=== PATIENT | male | born 1975 | race Caucasian/White ===

== ENCOUNTER 2017-05-27 05:48 | Inpatient (IN) | payer OTHER ==
[~2017-05-27] VITALS: Ht 182.9 cm; Wt 147.5 kg
[~2017-05-27 05:48] MED LIST: OXYC1TAB63 PO; XARE10TA PO
[2017-05-27] MEDS ORDERED: ceFAZolin 3,000 MG/NS 100 ML (if >120 kg) IV SCH ×2 (06:15)
[2017-05-27] MEDS ORDERED: CHLORHEXIDINE GLUCONATE 2 % 1 PACK (2 CLOTHS) TOPICAL PRN (06:30)
[2017-05-27] MEDS ORDERED: POVIDONE IODINE 5% (ANTISEPSIS KIT) 4 APPLICATIONS EACH NARE PRN (06:30)
[2017-05-27] MEDS ORDERED: LACTATED RINGER'S 1000 ML IV PRN (06:30)
[2017-05-27] MEDS ORDERED: CHLORHEXIDINE GLUCONATE 4% SOLN 120 ML BTL TOPICAL SCH (06:30)
[2017-05-27] MEDS ORDERED: METOPROLOL TARTRATE 25 MG TAB PO PRN (06:30)
[2017-05-27] MEDS ORDERED: SODIUM CHLORID 0.9% 500 ML IV PRN (06:30)
[2017-05-27] MEDS ORDERED: VANCOMYCIN 1000 MG/NS 250 ML (for <70 kg) IV SCH ×2 (06:30)
[2017-05-27] MEDS ORDERED: ACETAMINOPHEN 1000 MG/100 ML 100 ML IV ONE (09:47)
[2017-05-27] MEDS ORDERED: GENTAMICIN SULFATE 80 MG/2 ML VIAL ONE (10:06)
[2017-05-27] MEDS ORDERED: VANCOMYCIN HCL 1000 MG VIAL ONE (10:06)
[2017-05-27] MEDS ORDERED: ceFAZolin INJ 1,000 MG VIAL ONE (10:06)
[2017-05-27] MEDS ORDERED: PROPOFOL 200 MG/20 ML AMP IV ONE (12:00)
[2017-05-27] MEDS ORDERED: LIDOCAINE HCL 1% PF 5 ML SYRINGE OTHER ONE (12:00)
[2017-05-27] MEDS ORDERED: SUCCINYLCHOLINE CHLORIDE 200 MG/10 ML VIAL IV ONE (12:00)
[2017-05-27] MEDS ORDERED: DEXAMETHASONE SOD PHOS 4 MG/ML VIAL IV ONE (12:00)
[2017-05-27] MEDS ORDERED: ONDANSETRON HCL 4 MG/2 ML VIAL IV ONE (12:00)
--- NOTE | 2017-05-27 12:49 | PD.OP ---
cc: Clay Escalante MD Operative Report Date of Surgery: May 27, 2017 Preoperative Diagnosis: Comminuted displaced right bicondylar tibial plateau fracture Postoperative Diagnosis: Procedure: Removal of external fixation, open reduction internal fixation right bicondylar tibial plateau fracture Anesthesia: Gen. Surgeon: Clay Escalante Facility Administrator(s): JAMES Gonzalez PA-C The surgical procedure was assisted by my physician bankruptcy legal assistant. My P.A. presence was necessary throughout this case for the manipulation and positioning of the surgical extremity. My P.A. was assisting me throughout the duration of this procedure. The skill set of a physician bankruptcy legal assistant was medically necessary to complete this procedure. During the surgical case the medical surgical tech was working at the back table and the physician bankruptcy legal assistant was directly assisting me. Operation and Findings: This patient was seen and evaluated preoperatively. Patient sustained an injury resulting a comminuted right bicondylar tibial plateau fracture. Informed consent was obtained preoperatively after detailed discussion of the risks and benefits of surgery. Risk of surgery including bleeding, infection, nonunion, painful hardware, stiffness, loss of motion, arthritis, need for knee replacement, as well as medical complications including blood clots, stroke, heart attack, and were discussed. I also discussed the possibility of using allograft bone graft . Preoperatively the operative site was marked. Patient was brought to the operating room and placed on the operating room table. Intravenous sedation and general endotracheal anesthesia were administered. IV antibiotics were given and a time out procedure was preformed. Procedure began with removal of the external fixator. Clamps were loosened. Bars and clamps were now removed. The pins were left in place. Next,the operative leg was prepped with alcohol followed by Hibiclens and draped in the usual sterile fashion. Attention was now turned towards the medial tibial plateau. A 6 inch incision was made over the posterior medial aspect of the tibial plateau. Saphenous vein was protected. The PES insertion was elevated to expose the posterior medial tibial plateau. Fracture was visualized. Attention was now turned toward reduction. Traction was applied. Fracture was manipulated. Fracture keyed in excellent alignment. A fracture tenaculum was used to compress fracture. K wires were used for provisional fixation. Fluoroscopy confirmed excellent alignment of fracture. Two 3.5 cortical lag screws were placed from anterior to posterior. Good compression was obtained. A Synthes plate was now placed along the posterior medial tibial plateau. Plate was provisionally held to bone with K wires. Fluoroscopy confirmed plate placement. 3.5 cortical screws were used to compress plate to bone. Additional locking screws were placed proximally. Next a 6-inch curvilinear incision over the anterolateral knee. Subcutaneous tissue was treated with Bovie. Iliotibial band was split in line with fibers. A sub-meniscal arthrotomy was created and the lateral articular surface was visualized. There was significant comminution and depression of the articular surface. A window was made in the metaphyseal region and bone tamps used to elevate the articular surface. Articular surface reduced into excellent alignment. K-wires were used for provisional fixation. At this point cancellous bone graft was packed under the articular surface using a bone tamp. The cortical fragments were now reduced. Fluoroscopy revealed excellent alignment of fracture. A Synthes proximal tibial plate was selected. The plate was provisionally held with K-wires. 3.5 cortical screws were used compress plate to bone distally, and a periarticular clamp was used to compress the medial and lateral tibial plateau fracture fragments together. Multiple locking screws were now placed proximally. Additional screws were placed in the shaft. K-wires were removed. Final fluoroscopy showed excellent alignment of fracture with well-placed hardware. The incision was thoroughly irrigated. Attention was now returned back to the medial plate. Additional locking screws were placed proximally within the plate. All screws were predrilled and premeasured for appropriate length. Incisions were thoroughly irrigated. Attention was now turned to closure. Fascia and iliotibial band were closed with #1 Vicryl,. Subcutaneous tissues closed with 3-0 Vicryl and skin was closed with silas. Sterile dressings were applied. The patient was transferred to recovery in stable condition. Clay Escalante MD May 27, 2017 12:49
--- NOTE | 2017-05-27 12:56 | RADRPT ---
EXAM DATE/TIME: 05/27/2017 12:28 [facility] COMPARISON: No previous studies available for comparison. INDICATIONS : Post-op ORIF right tibial plateau fracture. MEDICAL HISTORY : None. SURGICAL HISTORY : None. ENCOUNTER: Initial ACUITY: 1 day PAIN SCORE: Non-responsive. LOCATION: Right Knee. FINDINGS: There is a comminuted tibial plateau fracture which has undergone open reduction internal fixation. F ixation consists of medial and lateral plates and multiple screws. Alignment is near-anatomic. No acu te complication demonstrated. There is a minimally displaced fracture in the neck region of the proximal fibula. CONCLUSION: Screw and plate fixation proximal tibia fracture in near-anatomic alignment. Arash Cruz MD on May 27, 2017 at 12:53 Board Certified Radiologist. This report was verified electronically.
[2017-05-27] MEDS ORDERED: DO NOT ADM ANY ANTICOAGULANT DRUGS PRN (13:30)
[2017-05-27] MEDS ORDERED: *morphine SULFATE 8 MG/ML PERIprocedure ONLY ONE ×2 (13:32→13:43)
[2017-05-27] MEDS ORDERED: *MEPERIDINE 25 MG INJ VIAL PERIprocedural Use ONLY ONE (13:51)
[2017-05-27] MEDS ORDERED: *HYDROmorphone PF 1 MG VIAL PERIprocedural Use ONLY ONE ×2 (13:54→14:10)
[2017-05-27] MEDS ORDERED: NALOXONE HCL 0.4 MG/ML AMP IV PUSH PRN (14:00)
[2017-05-27] MEDS ORDERED: Post-op Orders (for Pharmacy) XX ONE (14:00)
[2017-05-27] MEDS ORDERED: diphenhydrAMINE HCL 25 MG CAP PO PRN (14:00)
[2017-05-27] MEDS ORDERED: ERGOCALCIFEROL (VIT D2) 50,000 UNIT CAP PO SCH (14:00)
[2017-05-27] MEDS: CALCIUM/VITAMIN D 250 MG/125 U TAB PO SCH ×2 (14:00→17:17)
[2017-05-27] MEDS: KETOROLAC TROMETHAMINE 30 MG/ML (IVP) VIAL IVP SCH ×2 (14:38→21:38)
[2017-05-27] MEDS: LACTATED RINGER'S 1000 ML INJ 1,000 ML IV SCH (14:40)
[2017-05-27] MEDS: ACETAMINOPHEN/HYDROcodone 325 MG/10 MG TAB PO PRN ×2 (14:54→19:44)
[2017-05-27 17:10] VITALS: BP 127/69; PULSE 79; RESP 17; TEMP 97.5; O2SAT 95
[2017-05-27] MEDS: MORPHINE SULFATE 4 MG/ML INJ IV PUSH PRN ×2 (17:13→21:37)
[2017-05-27] MEDS: ONDANSETRON HCL 4 MG/2 ML VIAL IVP PRN ×2 (17:14→21:37)
[2017-05-27] MEDS: CEFAZOLIN INJ 2,000 MG in SODIUM CHLORIDE 0.9% INJ 100 ML IV SCH (18:24)
[2017-05-27 19:35] VITALS: BP 132/60; PULSE 86; RESP 19; TEMP 98; O2SAT 96
[2017-05-27] MEDS: DOCUSATE SODIUM 50 MG/SENNA 8.6 MG TAB PO SCH (19:43)
[2017-05-27] MEDS: VANCOMYCIN INJ 1,000 MG in SODIUM CHLOR 0.9% 250 ML INJ 250 ML IV SCH (21:44)
[2017-05-27 23:26] VITALS: BP 109/57; PULSE 84; RESP 18; TEMP 97.8; O2SAT 96
[2017-05-28] MEDS: ACETAMINOPHEN/HYDROcodone 325 MG/10 MG TAB PO PRN ×6 (00:15→21:12)
[2017-05-28] MEDS: LACTATED RINGER'S 1000 ML INJ 1,000 ML IV SCH ×2 (01:20→16:33)
[2017-05-28] MEDS: CEFAZOLIN INJ 2,000 MG in SODIUM CHLORIDE 0.9% INJ 100 ML IV SCH ×3 (02:37→18:03)
[2017-05-28] MEDS: ONDANSETRON HCL 4 MG/2 ML VIAL IVP PRN ×4 (02:38→13:05)
[2017-05-28] MEDS: MORPHINE SULFATE 4 MG/ML INJ IV PUSH PRN ×5 (02:38→19:08)
[2017-05-28 04:35] VITALS: BP 134/65; PULSE 83; RESP 17; TEMP 98; O2SAT 96
[2017-05-28 05:41] LABS: HEMATOCRIT 30.5 % (39.0-51.0)
[2017-05-28] MEDS: KETOROLAC TROMETHAMINE 30 MG/ML (IVP) VIAL IVP SCH ×3 (06:17→21:17)
[2017-05-28 07:57] VITALS: BP 123/60; PULSE 77; RESP 18; TEMP 98.3; O2SAT 97
[2017-05-28] MEDS: DOCUSATE SODIUM 50 MG/SENNA 8.6 MG TAB PO SCH ×2 (08:10→21:12)
[2017-05-28] MEDS: CHOLECALCIFEROL (VIT D3) 1000 UNIT TAB PO SCH (08:10)
[2017-05-28] MEDS: CALCIUM/VITAMIN D 250 MG/125 U TAB PO SCH ×3 (08:11→16:31)
--- NOTE | 2017-05-28 08:53 | PD.ORT.PN ---
Subjective Subjective Remarks Pain controlled with no new complaints Objective Vitals Vital Signs Date Time Temp Pulse Resp B/P (MAP) Pulse Ox O2 Delivery O2 Flow Rate FiO2 05/28/17 07:57 98.3 77 18 123/60 (81) 97 05/28/17 04:35 98.0 83 17 134/65 (88) 96 05/27/17 23:26 97.8 84 18 109/57 (74) 96 05/27/17 19:35 98.0 86 19 132/60 (84) 96 05/27/17 17:10 97.5 79 17 127/69 (88) 95 05/27/17 16:00 14 05/27/17 16:00 14 05/27/17 13:22 98.6 79 18 107/52 (70) 93 Nasal Cannula 4 I/O 05/27/17 05/27/17 05/27/17 05/28/17 05/28/17 05/28/17 07:00 15:00 23:00 07:00 15:00 23:00 Intake Total 700 ml 770 ml 120 ml 960 ml Output Total 200 ml 1000 ml Balance 500 ml 770 ml 120 ml -40 ml Intake Oral 120 ml 960 ml IV Total 650 ml 120 ml Other 700 ml Output Urine Total 1000 ml Estimated Blood Loss 200 ml # Bowel Movements 0 Result Diagram: 05/28/17 0512 Imaging Last 72 hours Impressions Knee X-Ray 05/27/17 0000 Signed Impressions: Service Date/Time: Saturday, May 27, 2017 12:28 - CONCLUSION: Screw and plate fixation proximal tibia fracture in near-anatomic alignment. Arash Cruz MD Objective Remarks Right lower extremity: No pain with hip range of motion. Knee immobilizer and clean dressings in place. Distally intact sensation with good capillary refills. After dorsiflexion plantar flexion of foot. Intact distal pulses Assessment & Plan Assessment and Plan Right bicondylar tibial plateau fracture ORIF POD 1 with removal of external fixation Nonweightbearing right lower extremity Knee immobilizer at all times except for physical therapy for passive range of motion of the knee.. No active leglifts or quad sets Begin daily dressing changes POD 2 Plan for discharge to home on Friday Lovenox Follow-up Dr. Escalante or [place] in 2 weeks Kana Nicholson Jr. May 28, 2017 08:53
--- NOTE | 2017-05-28 08:57 | HHI.FF ---
Face to Face Verification Diagnosis: (1) Closed bicondylar fracture of right tibial plateau Physical Therapy Gait training, Safety evaluation Canvas Knee Splint: Remove only with PT Right LE Weight Bearing: Non WB, No Strengthening, No Quad Sets Right LE Range of Motion: Passive ROM Nursing Dressing Changes: Daily dressing change, Gabriel wrap, 4x4s, Xeroform I have seen patient Howard Chow on 05/28/17. My clinical findings support the need for the requested home health care services because: Limited ability to care for self I certify that my clinical findings support that this patient is homebound because: Unsteady gait/balance Kana Nicholson Jr. May 28, 2017 08:57
[2017-05-28 11:54] VITALS: BP 115/59; PULSE 73; RESP 18; TEMP 97.8; O2SAT 100
[2017-05-28] MEDS: ENOXAPARIN SODIUM 30 MG/0.3 ML SYRINGE SQ SCH ×2 (12:51→23:41)
[2017-05-28] MEDS: VANCOMYCIN INJ 1,000 MG in SODIUM CHLOR 0.9% 250 ML INJ 250 ML IV SCH ×2 (12:51→23:00)
[2017-05-28 15:56] VITALS: BP 110/55; PULSE 78; RESP 18; TEMP 98.2; O2SAT 97
[2017-05-28 20:00] VITALS: BP 117/55; PULSE 91; RESP 17; TEMP 98.2; O2SAT 99
[2017-05-28 23:02] VITALS: BP 120/56; PULSE 84; RESP 17; TEMP 97.6; O2SAT 97
[2017-05-28] MEDS ORDERED: BACITRACIN TOP OINT 15 GM TUBE TOPICAL PRN (23:15)
[2017-05-29] MEDS: ACETAMINOPHEN/HYDROcodone 325 MG/10 MG TAB PO PRN ×4 (01:56→12:14)
[2017-05-29] MEDS: CEFAZOLIN INJ 2,000 MG in SODIUM CHLORIDE 0.9% INJ 100 ML IV SCH ×2 (01:57→10:42)
[2017-05-29] MEDS: LACTATED RINGER'S 1000 ML INJ 1,000 ML IV SCH (02:00)
[2017-05-29] MEDS: KETOROLAC TROMETHAMINE 30 MG/ML (IVP) VIAL IVP SCH (05:55)
--- NOTE | 2017-05-29 06:33 | PD.ORT.PN ---
Subjective Subjective Remarks POD 2 s/p ORIF right tibial plateau doing well. pain controlled. using walker. Objective Vitals Vital Signs Date Time Temp Pulse Resp B/P (MAP) Pulse Ox O2 Delivery O2 Flow Rate FiO2 05/28/17 23:02 97.6 84 17 120/56 (77) 97 05/28/17 20:00 98.2 91 17 117/55 (75) 99 05/28/17 15:56 98.2 78 18 110/55 (73) 97 05/28/17 11:54 97.8 73 18 115/59 (77) 100 05/28/17 07:57 98.3 77 18 123/60 (81) 97 I/O 05/28/17 05/28/17 05/28/17 05/29/17 05/29/17 05/29/17 07:00 15:00 23:00 07:00 15:00 23:00 Intake Total 120 ml 2290 ml 250 ml Output Total 3000 ml Balance 120 ml -710 ml 250 ml Intake Oral 1920 ml IV Total 120 ml 370 ml 250 ml Output Urine Total 3000 ml # Voids 4 # Bowel Movements 0 Result Diagram: 05/28/17 0512 Imaging Last 72 hours Impressions Knee X-Ray 05/27/17 0000 Signed Impressions: Service Date/Time: Saturday, May 27, 2017 12:28 - CONCLUSION: Screw and plate fixation proximal tibia fracture in near-anatomic alignment. Arash Cruz MD Objective Remarks Right lower extremity: No pain with hip range of motion. Knee immobilizer and clean dressings in place. Distally intact sensation with good capillary refills. After dorsiflexion plantar flexion of foot. Intact distal pulses Assessment & Plan Assessment and Plan 1) Right bicondylar tibial plateau fracture ORIF with removal of external fixation - POD 2 Nonweightbearing right lower extremity Knee immobilizer at all times except for physical therapy for passive range of motion of the knee.. No active leglifts or quad sets Begin daily dressing changes Plan for discharge to home today with [facility] Follow-up Dr. Escalante or [place] in 2 weeks Sher Reese/Sanding Machine Tender PA May 29, 2017 06:33
[2017-05-29] MEDS ORDERED: HYDR-3366 PO (06:34)
--- NOTE | 2017-05-29 07:13 | HHI.DS ---
Discharge Summary Admission Date May 27, 2017 at 16:19 Discharge Date: May 29, 2017 Admitting Diagnosis Right bicondylar tibial plateau fracture Diagnosis: (1) Closed bicondylar fracture of right tibial plateau Diagnosis: Principal ICD Codes: S82.141A - Displaced bicondylar fracture of right tibia, initial encounter for closed fracture Procedures ORIF of right tibial plateau CBC/BMP: 05/28/17 0512 Significant Findings Laboratory Tests Test 05/28/17 05:12 Hemoglobin 10.0 GM/DL (13.0-17.0) Hematocrit 30.5 % (39.0-51.0) PE at Discharge Right lower extremity: No pain with hip range of motion. Knee immobilizer and clean dressings in place. Distally intact sensation with good capillary refills. After dorsiflexion plantar flexion of foot. Intact distal pulses Hospital Course Patient admitted from outpatient basis for ORIF of right tibial plateau. He tolerated the procedure well and was admitted to [facility]. There is that on postop day 1 with a walker and ambulating to the bathroom back with little discomfort or problems. By postop day 2, his pain was well controlled and he was hemodynamically stable. Dressing changes were initiated. He tolerated them well. He was fit for discharge home with home health care on postop day 2. He will follow-up with Dr. Talavera or his PA in 2 weeks. He will remain nonweightbearing the right leg and avoid any leg lifts and quad sets. He will maintain his knee brace at all times except for therapy to work on passive motion from 0-90. He will have daily dressing changes with Xeroform, 4 x 4's, and Gabriel wrap. Pt Condition on Discharge: Good Discharge Disposition: Disch w/ Home Health Serv Discharge Instructions Diet Instructions: As Tolerated, No Restrictions Activities You Can Perform: Non Weight Bearing Follow up Referrals: Orthopedics - 2 Weeks @ [facility] with Clay Talavera MD New Medications: Hydrocodone-Acetaminophen ([place]) 10-325 Mg Tab 1 TAB PO Q4H PRN for PAIN, #40 TAB 0 Refills Continued Medications: Rivaroxaban (Xarelto) 10 Mg Tab 10 MG PO DAILY for Blood Clot Prevention, TAB 0 Refills Discontinued Medications: Oxycodone-Acetaminophen (Oxycodone-Acetaminophen) 5-325 mg Tab 2 TAB PO Q4H PRN for PAIN, TAB 0 Refills Sher Reese/Office Workforce Planner THADDEUS May 29, 2017 07:13
[2017-05-29 08:00] VITALS: BP 124/59; PULSE 75; RESP 20; TEMP 98.8; O2SAT 98
[2017-05-29] MEDS: CHOLECALCIFEROL (VIT D3) 1000 UNIT TAB PO SCH (09:04)
[2017-05-29] MEDS: DOCUSATE SODIUM 50 MG/SENNA 8.6 MG TAB PO SCH (09:04)
[2017-05-29] MEDS: CALCIUM/VITAMIN D 250 MG/125 U TAB PO SCH ×2 (09:04→12:14)
[2017-05-29] MEDS: ENOXAPARIN SODIUM 30 MG/0.3 ML SYRINGE SQ SCH (10:42)
== END 2017-05-29 13:03 | disposition home health service (06) | DRG 493 ==
LOC: HSDC 05:48 → HSDI 16:19 → N06B 17:00
PROVIDERS: ADMIT Orthopaedic Surgery Orthopaedic Trauma; ATTEND Orthopaedic Surgery Orthopaedic Trauma
PROC: 0QPGX5Z Removal of External Fixation Device from Right Tibia, External Approach (ICD-10-PCS; 2017-05-27)
PROC: 0QSG04Z Reposition Right Tibia with Internal Fixation Device, Open Approach (ICD-10-PCS; principal; 2017-05-27 10:32)
DX: S82.141A Displaced bicondylar fracture of right tibia, initial encounter for closed fracture (principal); Z68.41 Body mass index [BMI] 40.0-44.9, adult; E66.9 Obesity, unspecified; V29.9XXA Motorcycle rider (driver) (passenger) injured in unspecified traffic accident, initial encounter; Z79.01 Long term (current) use of anticoagulants
CPT/HCPCS: 73560; 76000; 85014; 85018; 94150; C1713; J0131; J0330; J0690; J1100; J1170; J1580; J1650; J1885; J2175; J2270; J2405; J3010; J3370; J7050; J7120; L1830